=== PATIENT | male | born 1970 | race Caucasian/White ===

== ENCOUNTER 2020-04-27 02:48 | Emergency (ER) | payer OTHER ==
[~2020-04-27] VITALS: Ht 170.2 cm; Wt 63.5 kg
[2020-04-27 02:49] VITALS: BP 122/81; Ht 170.2 cm; Wt 63.5 kg
== END 2020-04-27 03:15 | disposition other institution (70) ==
LOC: ED 02:48
DX: Z02.89 Encounter for other administrative examinations (principal)